=== PATIENT | male | born 1990 | race Two or more races ===

== ENCOUNTER 2022-11-16 15:23 | Emergency (ER) | payer MEDICAID, OTHER ==
[~2022-11-16] VITALS: Ht 180.3 cm; Wt 118.0 kg
[2022-11-16] MEDS ORDERED: LORazepam 0.5 MG TAB PO ONE (16:00)
[2022-11-16 16:06] LABS: Basophils # (auto) 0.1 10 ^3/uL (0-0.2); Basophils % (auto) 0.8 % (0.0-2.0); Eosinophils # (auto) 0.2 10 ^3/uL (0-0.8); Hematocrit 39.9 % (41.0-53.0); Hemoglobin 13.5 g/dL (13.5-17.5); Lymphocytes # (auto) 2.6 10 ^3/uL (0.4-5.4); Lymphocytes % (auto) 31.1 % (10.0-50.0); Mean Corpuscular Hemoglobin 29.7 pg (28.0-32.0); Mean Corpuscular Hgb Conc. 33.9 g/dL (32.0-36.0); Mean Corpuscular Volume 87.8 fL (80.0-100.0); Monocytes # (auto) 0.7 10 ^3/uL (0-1.3); Monocytes % (auto) 7.9 % (0.0-12.0); Neutrophils # (auto) 4.9 10 ^3/uL (1.6-8.6); Neutrophils % (auto) 58.2 % (37.0-80.0); Nucleated Red Blood Cells % 0.2 %; Red Blood Cells 4.55 10^6/uL (4.5-5.90); Red Cell Distribution Width 14.6 % (11.8-14.3); White Blood Cell 8.4 10^3/uL (4.4-10.8)
[2022-11-16 16:27] LABS: Albumin 3.7 g/dL (3.4-5.0); Calcium 8.7 mg/dL (8.5-10.1)
[2022-11-16 16:28] LABS: Salicylate < 1.7 mg/dL (2.8-20.0)
[2022-11-16 16:30] LABS: Acetaminophen < 2.0 ug/mL (10-30)
[2022-11-16 16:33] LABS: BUN/Creatinine Ratio 4.6 (10.0-20.0); Bilirubin, Total 0.4 mg/dL (0.2-1.0); Total Protein 7.7 g/dL (6.4-8.2)
[2022-11-16 20:00] VITALS: PULSE 86; RESP 18; O2SAT 97
[2022-11-16 21:58] LABS: Urine Bacteria NONE SEEN /hpf (None Seen); Urine Blood Negative /uL (Negative); Urine Mucus FEW (None Seen); Urine Specific Gravity 1.016 (1.001-1.035); Urine WBC 1 /hpf (0 - 3)
[2022-11-16 22:09] LABS: Amphetamine Screen, Urine POSITIVE (NEGATIVE); Barbiturate Scree,Urine NEGATIVE (NEGATIVE); Benzodiazephine Screen, Urine NEGATIVE (NEGATIVE); Cannabinoid Screen, Urine POSITIVE (NEGATIVE); Cocaine Screen, Urine NEGATIVE (NEGATIVE); Phencyclidine Screen, Urine NEGATIVE (NEGATIVE)
[2022-11-16 23:37] LABS: Opiate Scree,Urine NEGATIVE (NEGATIVE)
[2022-11-17] MEDS ORDERED: LORazepam 0.5 MG TAB PO PRN (10:15)
[2022-11-17 10:42] VITALS: PULSE 16; RESP 18; O2SAT 98
[2022-11-17] MEDS: risperiDONE 1 MG TAB PO SCH (19:23)
[2022-11-17 19:35] VITALS: PULSE 92; RESP 16; O2SAT 98
[2022-11-17] MEDS ORDERED: risperiDONE 1 MG TAB PO ONE (22:00)
[2022-11-18 10:46] VITALS: PULSE 68; RESP 20; O2SAT 98
[2022-11-18] MEDS: risperiDONE 1 MG TAB PO SCH (19:38)
[2022-11-18 19:45] VITALS: PULSE 78; RESP 14; O2SAT 99
[2022-11-19 04:47] VITALS: BP 127/81; PULSE 66; RESP 12; TEMP 97.9; O2SAT 99
== END 2022-11-19 05:08 | disposition short-term general hospital (02) ==
LOC: ER 15:23
DX: R45.851 Suicidal ideations (principal); F31.9 Bipolar disorder, unspecified; F41.9 Anxiety disorder, unspecified; F17.210 Nicotine dependence, cigarettes, uncomplicated; F15.10 Other stimulant abuse, uncomplicated; Z59.00 Homelessness unspecified
CPT/HCPCS: 36415; 80053; 80307; 80329; 81001; 85025